=== PATIENT | female | born 1960 | race African-American/Black ===

== ENCOUNTER 2017-08-11 01:10 | Emergency (ER) | payer OTHER ==
[~2017-08-11] VITALS: Ht 160 cm; Wt 74.8 kg
[~2017-08-11 01:10] MED LIST: BP MED; HYDROCHLOROTHIA25 M1 PO; HYDROCODONE-AP1 EAC6 PO; LISINOPRIL-HCT1 EAC2 PO; LISINOPRIL20 MG PO; LOVASTATIN 20 M20 MG; PEPCID20 MG PO; PREDNISONE 20 M20 MG PO; SIMVASTATIN5 MG; TOPROL XL25 MG PO; XANAX 0.25 MG0.25 MG PO; ZESTORETIC 20-1 EAC3 PO
[2017-08-11 01:11] VITALS: BP 148/108
[2017-08-11] MEDS ORDERED: AMLODIPINE BESY10 MG PO ×2 (01:19→01:41)
[2017-08-11] MEDS ORDERED: LISINOPRIL20 MG PO (01:41)
[2017-08-11] MEDS ORDERED: TOPROL XL25 MG PO (01:41)
[2017-08-11] MEDS ORDERED: HYDROCHLOROTHIA25 M2 PO (01:41)
== END 2017-08-11 01:53 | disposition home or self-care (01) ==
LOC: ER 01:10
DX: I10 Essential (primary) hypertension (principal); J32.9 Chronic sinusitis, unspecified; F17.210 Nicotine dependence, cigarettes, uncomplicated; F10.99 Alcohol use, unspecified with unspecified alcohol-induced disorder; Z88.8 Allergy status to other drugs, medicaments and biological substances